=== PATIENT | female | born 1985 | race Caucasian/White ===

== ENCOUNTER 2021-03-24 23:06 | Emergency (ER) | payer OTHER ==
[~2021-03-24 23:06] MED LIST: FLEXERIL10 MG PO
[2021-03-25 00:05] LABS: BASOPHIL 0.6 % (0-2); EOSINOPHIL 0.4 % (0-5); HCT 40.1 % (37.0-47.0); HGB 13.6 g/dl (12.5-16.0); LYMPHOCYTE 26.1 % (15-48); MCH 31.7 pg (25.0-31.0); MCHC 33.9 g/dL (32.0-36.0); MCV 93.5 fL (78.0-100.0); MONOCYTE 5.8 % (0-12); NEUTROPHIL 66.8 % (41-80); NRBC 0; PLT 332 K/uL (150-400); RBC 4.29 M/uL (4.20-5.40); RDW 11.9 % (11.5-14.0); WBC 9.4 K/uL (4.0-10.5)
[2021-03-25 00:10] LABS: INR 1.06 (0.9-1.2); PROTHROMBIN TIME 13.1 SECONDS (11.4-13.6)
[2021-03-25 00:19] LABS: D-DIMER < 0.27 ug/mLFEU (0.00-0.41)
[2021-03-25 00:24] LABS: ALBUMIN 3.8 g/dL (3.4-5.0); BILIRUBIN - TOTAL 0.2 mg/dL (0.2-1.0); BUN/CREAT RATIO (CALC) 10.3 RATIO; CREATININE 0.87 mg/dL (0.51-0.95); GLOBULIN (CALCULATION) 3.2 g/dL; POTASSIUM 3.7 mmol/L (3.5-5.1)
[2021-03-25 01:07] LABS: BILIRUBIN NEGATIVE (NEGATIVE); BLOOD NEGATIVE Ery/uL (NEGATIVE); CLARITY CLEAR (CLEAR); COLOR YELLOW (YELLOW); GLUCOSE (U) NORMAL (NORMAL); LEUKOCYTES NEGATIVE Leu/uL (NEGATIVE); NITRITE NEGATIVE (NEGATIVE); PROTEIN NEGATIVE (NEGATIVE); UROBILINOGEN 0.2 mg/dL (0.2-1.0)
== END 2021-03-25 01:58 | disposition home or self-care (01) ==
LOC: FER 23:06
PROVIDERS: Emergency Medicine Emergency Medical Services
DX: R07.89 Other chest pain (principal); R42 Dizziness and giddiness; R06.02 Shortness of breath; Z88.5 Allergy status to narcotic agent; Z88.6 Allergy status to analgesic agent
CPT/HCPCS: 36415; 71045; 80053; 81003; 83735; 84439; 84443; 84484; 85025; 85379; 85610; 85730; 93005; J7030

== ENCOUNTER 2022-03-16 23:26 | Emergency (ER) | payer OTHER ==
[~2022-03-16 23:26] MED LIST changes: +CELLCEPT500 MG PO; +DAILY VALUE1 EACH PO; +VENTOLIN HFA IN18 GM INH
[2022-03-17 00:10] LABS: BASOPHIL 0.6 % (0-2); EOSINOPHIL 0.7 % (0-5); HCT 39.6 % (37.0-47.0); HGB 13.3 g/dl (12.5-16.0); LYMPHOCYTE 27.8 % (15-48); MCH 30.4 pg (25.0-31.0); MCHC 33.6 g/dL (32.0-36.0); MCV 90.4 fL (78.0-100.0); MONOCYTE 6.9 % (0-12); NEUTROPHIL 63.6 % (41-80); NRBC 0; PLT 343 K/uL (150-400); RBC 4.38 M/uL (4.20-5.40); RDW 12.1 % (11.5-14.0); WBC 10.8 K/uL (4.0-10.5)
[2022-03-17 00:24] LABS: BUN/CREAT RATIO (CALC) 8.2 RATIO; CREATININE 0.85 mg/dL (0.51-0.95); MAGNESIUM 1.7 mg/dL (1.8-2.4); POTASSIUM 3.3 mmol/L (3.5-5.1)
[2022-03-17] MEDS ORDERED: ONDANSETRON ODT4 MG PO (00:51)
[2022-03-21] MEDS ORDERED: ZESTRIL2.5 MG PO (08:22)
[2022-03-21] MEDS ORDERED: PERCOCET 5-3251 EACH PO (10:04)
== END 2022-03-17 01:06 | disposition home or self-care (01) ==
LOC: FER 23:26
PROVIDERS: Internal Medicine
DX: R07.89 Other chest pain (principal); F41.9 Anxiety disorder, unspecified; I10 Essential (primary) hypertension; Z88.6 Allergy status to analgesic agent; Z88.8 Allergy status to other drugs, medicaments and biological substances; Z88.5 Allergy status to narcotic agent; Z79.899 Other long term (current) drug therapy; Z28.310 Unvaccinated for COVID-19
CPT/HCPCS: 36415; 80048; 83735; 84484; 85025; 93005; J2405

== ENCOUNTER → 2022-03-21 | Day surgery (SDC) | payer OTHER ==
[~2022-03-21] VITALS: Ht 142.2 cm; Wt 58.0 kg
[~2022-03-21] MED LIST changes: +ONDANSETRON ODT4 MG PO; +PERCOCET 5-3251 EACH PO; +ZESTRIL2.5 MG PO
[2022-03-21 08:35] LABS: HCG (URINE) SCREEN NEGATIVE (NEGATIVE)
[2022-03-21 09:08] LABS: HCT 42.7 % (37.0-47.0); HGB 14.2 g/dl (12.5-16.0); MCH 30.3 pg (25.0-31.0); MCHC 33.3 g/dL (32.0-36.0); MPV 9.3 fL (6.0-9.5); RBC 4.69 M/uL (4.20-5.40); RDW 12.3 % (11.5-14.0); WBC 6.3 K/uL (4.0-10.5)
[2022-03-21 09:13] LABS: CREATININE 0.83 mg/dL (0.51-0.95); POTASSIUM 3.3 mmol/L (3.5-5.1)
== END | disposition home or self-care (01) ==
LOC: FAS 08:05
PROVIDERS: Obstetrics & Gynecology
DX: N93.9 Abnormal uterine and vaginal bleeding, unspecified (principal); J45.909 Unspecified asthma, uncomplicated; Z88.6 Allergy status to analgesic agent; Z88.5 Allergy status to narcotic agent; Z88.8 Allergy status to other drugs, medicaments and biological substances; Z87.891 Personal history of nicotine dependence; Z20.822 Contact with and (suspected) exposure to COVID-19
CPT/HCPCS: 36415; 80048; 84703; 86850; 86900; 86901; J1100; J2250; J2704; J3010; J7120